=== PATIENT | female | born 1985 | race Caucasian/White ===

== ENCOUNTER 2024-04-14 10:17 | Emergency (ER) | payer OTHER, SELFPAY ==
--- NOTE | ~2024-04-14 | XR_ITS ---
o XR foot RT min 3V 04/14/2024 10:45 Indication: Right foot pain Procedure: 3 views right foot Comparison: No prior studies for comparison. Findings: There is an oblique nondisplaced extra-articular fracture distal aspect of the fifth metata rsal. Mild soft tissue swelling. No other fracture. Lisfranc joint intact. No foreign bodies. Impression: 1: Oblique nondisplaced extra-articular fracture distal aspect of the right fifth metatarsal. Reviewed, dictated and finalized at location B. Impression: 1: Oblique nondisplaced extra-articular fracture distal aspect of the right fif th metatarsal.
[2024-04-14 10:17] VITALS: BP 147/98; PULSE 77; RESP 16; TEMP 36.4; O2SAT 97
--- NOTE | 2024-04-14 10:37 | ED.GENADULT ---
HPI - General Adult General Chief complaint: Extremity Injury, Lower Stated complaint: Right Foot Injury Time Seen by Provider: 04/14/24 10:35 Source: patient Mode of arrival: ambulatory History of Present Illness HPI narrative: 39-year-old white female dropped a heavy water bottle on her right foot causing a contusion to the right distal metatarsal area complains of mild swelling and 10 out 10 pain especially with walking it is worse. 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 She broken a bone in her foot in the distant past. Denies any other complaints says she can not be she has not had sex in months. Is normal she is currently on it. She is eating drinking voiding and stooling fine talking seeing hearing fine no other swelling or bruising elsewhere or other pain. No bleeding cough for fever sore throat runny nose problems eating drinking voiding or stooling Az other complaints. Past medical history previous history of a fracture right foot 4th metatarsal. Related Data Home Medications Medication Instructions Recorded Confirmed escitalopram oxalate 10 mg tablet 10 mg PO DAILY 04/14/24 04/14/24 Allergies Allergy/AdvReac Type Severity Reaction Status Date / Time aspartame Allergy Unknown Verified 04/14/24 10:33 cetirizine [From Zyrtec] Allergy Unknown Verified 04/14/24 10:33 nut - unspecified Allergy Anaphylaxis Verified 04/14/24 10:33 Review of Systems Review of Systems: All systems reviewed & are unremarkable except as noted in HPI and below Exam Narrative: a piece white female no apparent distress at rest. Gait not tested right foot has mild swelling and contusion over the distal 5th metatarsal area and with associated moderate tenderness. Capillary refills normal over toes. DP and PT pulse are +2. There is no other foot tenderness she has a small fibroma underneath her arch of her foot. Her ankle has full range of motion is nontender. She has normal above right foot. Neurologically is motor and sensory grossly intact. Skin is normal without lesions Const: General: healthy appearing Nutritional Appearance: well nourished Course Vital Signs Vital signs: Vital Signs Temperature 36.4 C L 04/14/24 10:17 Pulse Rate 77 04/14/24 10:17 Respiratory Rate 16 04/14/24 10:17 Blood Pressure 147/98 H 04/14/24 10:17 Pulse Oximetry 97 04/14/24 10:17 Oxygen Delivery Room Air 04/14/24 10:17 Temperature 36.4 C L 04/14/24 10:17 Pulse Rate 77 04/14/24 10:17 Respiratory Rate 16 04/14/24 10:17 Blood Pressure 147/98 H 04/14/24 10:17 Pulse Oximetry 97 04/14/24 10:17 Oxygen Delivery Room Air 04/14/24 10:17 Medical Decision Making MDM Narrative Medical decision making narrative: ? Patient placed in room: 2 ? History and physical was performed. Independent Historian: patient External Source Review: Differential Dx includes but not limited to: fracture dislocation contusion Medications were Reviewed: home meds reviewed Medications given: Toradol 30 IM Independently Interpreted by me: x-ray right foot Showed nondisplaced fracture through 5th metatarsal head as independently interpreted by me. X-ray over-read by radiologist shows showedOblique nondisplaced extra-articular fracture distal aspect of the right fifth metatarsal. Shared decision Making: evaluation was discussed all questions were asked and answered patient agreed with the plan. she would follow with Dr. Jiang use crutches and a postop shoe, [place] 5/325 q.i.d. as needed for pain. She may use her meloxicam for pain. Social Situation Impacting Patients Care: DISCHARGE DIAGNOSIS: nondisplaced right 5th metatarsal fracture DISPOSITION: discharge home follow-up with orthopedist Dr. Jiang CONDITION AT DISCHARGE: stable Vital Signs Vital Signs: Vital Signs Temperature 36.4 C L 04/14/24 10:17 Pulse Rate 77 04/14/24 10:17 Respiratory Rate
[2024-04-14] MEDS: KETOROLAC 30 MG/ML VIAL (*BKC) IM (10:45)
[2024-04-14 11:25] VITALS: BP 135/85; PULSE 79; RESP 17; TEMP 36.4; O2SAT 99
== END 2024-04-14 11:25 | disposition home or self-care (01) ==
PROVIDERS: Emergency Provider Emergency Medicine; PCP Physician Assistant
DX: S92.351A Displaced fracture of fifth metatarsal bone, right foot, initial encounter for closed fracture (principal); W22.8XXA Striking against or struck by other objects, initial encounter
CPT/HCPCS: 73630; 96372; 99284; J1885